=== PATIENT | female | born 1980 | race Two or more races ===

== ENCOUNTER 2019-02-28 05:15 | Emergency (ER) | payer OTHER ==
[~2019-02-28] VITALS: Ht 167.6 cm; Wt 93.9 kg
--- NOTE | 2019-02-28 05:25 | NUR ---
Dr. England at bedside for MSE.
--- NOTE | 2019-02-28 05:32 | NUR ---
Pt provided urine sample, sent to lab.
--- NOTE | 2019-02-28 05:34 | NUR ---
Xray at bedside.
[2019-02-28 05:42] LABS: *URINE HCG, QUAL NEGATIVE (NEGATIVE)
--- NOTE | 2019-02-28 06:00 | NUR ---
Patient discharged to home in stable conditon. Written and verbal after care instructions given. Patient verbalizes understanding of instructions. Pt ambulated out of ER with steady gait, no acute signs of distress, VSS, all belongings taken.
[2019-02-28 06:01] VITALS: BP 128/82
== END 2019-02-28 06:02 | disposition home or self-care (01) ==
LOC: ER 05:16
DX: K21.9 Gastro-esophageal reflux disease without esophagitis (principal); R05 Cough; R42 Dizziness and giddiness; F17.290 Nicotine dependence, other tobacco product, uncomplicated; Z88.1 Allergy status to other antibiotic agents
CPT/HCPCS: 71045; 84703; 93005; A4663